=== PATIENT | male | born 1985 | race American Indian/Alaskan Native ===

== ENCOUNTER 2017-02-28 14:56 | Emergency (ER) | payer SELFPAY ==
[2017-02-28 15:37] LABS: Basophils % (Auto) 1.2 % (0.0-1.8); Hematocrit 48.3 % (35.5-45.6); Hemoglobin 16.5 gm/dl (11.8-15.2); Mean Corpuscular HGB Conc 34 % (32-34); Mean Corpuscular Hemoglobin 32 pg (28-32); Mean Corpuscular Volume 93 fl (84-94); Platelet Count 168 K/mm3 (140-440); Red Blood Count 5.18 M/mm3 (3.65-5.03); Red Cell Distribution Width 12.8 % (13.2-15.2)
[2017-02-28 16:07] LABS: Alanine Aminotransferase 22 units/L (7-56); Albumin 4.4 g/dL (3.9-5); Albumin/Globulin Ratio 1.6 %; Alkaline Phosphatase 72 units/L (35-129); Anion Gap 19 mmol/L; BUN/Creatinine Ratio 13; Blood Urea Nitrogen 10 mg/dL (9-20); Calcium 9.2 mg/dL (8.4-10.2); Carbon Dioxide 24 mmol/L (22-30); Chloride 102.4 mmol/L (98-107); Glucose 91 mg/dL (75-100); Lipase 44 units/L (13-60); Potassium 3.9 mmol/L (3.6-5.0); Sodium 141 mmol/L (137-145); Total Protein 7.2 g/dL (6.3-8.2)
[2017-02-28 16:56] LABS: Bilirubin,Urine NEG (Negative); Blood,Urine NEG (Negative); Ketones,Urine NEG (Negative); Leukocyte Esterase,Urine NEG (Negative); Mucus,Urine 3+ /HPF; Nitrite,Urine NEG (Negative)
--- NOTE | 2017-02-28 22:45 | Emergency Department Report ---
ED N/V/D HPI - General Chief complaint: Abdominal Pain Stated complaint: LIQUID STOOLX 2 WKS /ABD Time Seen by Provider: 02/28/17 22:17 Source: patient Mode of arrival: Ambulatory Limitations: No Limitations - History of Present Illness Initial comments: 31-year-old male with a past medical history of HIV with CD4 greater than 600 this year presents to the hospital with complaints of liquid stool and abdominal cramping 2 weeks. Patient states he has approximately 7-8 BM per day. Planes of hematochezia or melena. Patient has crampy intermittent abdominal pain rated 7/10 intensity worse prior to problem and after eating. Denies nausea, vomiting, fever, sick contacts, recent travel, or recent antibiotic use. Patient follows with the [facility] and is taking his HIV medication. - Related Data Previous Rx's Medication Instructions Recorded Last Taken Type Diclofenac Sodium 75 mg PO BID PRN #20 tab 11/26/13 Unknown Rx HYDROcodone/APAP 5-325 [[place] 1 each PO Q6HR PRN #15 tablet 07/11/15 Unknown Rx 5/325] Ibuprofen [Motrin] 800 mg PO Q8HR PRN #15 tablet 07/11/15 Unknown Rx Ciprofloxacin HCl [Ciprofloxacin 500 mg PO Q12HR #10 tab 03/01/17 Unknown Rx TAB] metroNIDAZOLE [Flagyl] 500 mg PO Q12HR #10 tab 03/01/17 Unknown Rx Allergies Allergy/AdvReac Type Severity Reaction Status Date / Time No Known Allergies Allergy Unverified 11/26/13 15:27 ED Review of Systems ROS: Stated complaint: LIQUID STOOLX 2 WKS /ABD Other details as noted in HPI Comment: All other systems reviewed and negative Other: Constitutional: No fevers chills Eyes: No eye pain visual changes ENT: No ear pain or throat pain Neck: Denies pain Respiratory: Denies cough wheezing shortness of breath Cardiovascular: Denies chest pain, palpitations, syncope GI: As per HPI : Denies dysuria Musculoskeletal: Denies back pain, joint swelling Skin: Denies rash, lesions, erythema Neurologic: Denies headache, numbness, weakness Psychiatric: Denies suicidal ideation, hallucinations ED Past Medical Hx - Past Medical History Hx HIV: Yes - Social History Smoking Status: Current Every Day Smoker - Medications Home Medications: Home Medications Medication Instructions Recorded Confirmed Last Taken Type Diclofenac Sodium 75 mg PO BID PRN #20 tab 11/26/13 Unknown Rx HYDROcodone/APAP 5-325 [[place] 1 each PO Q6HR PRN #15 tablet 07/11/15 Unknown Rx 5/325] Ibuprofen [Motrin] 800 mg PO Q8HR PRN #15 tablet 07/11/15 Unknown Rx Ciprofloxacin HCl [Ciprofloxacin 500 mg PO Q12HR #10 tab 03/01/17 Unknown Rx TAB] metroNIDAZOLE [Flagyl] 500 mg PO Q12HR #10 tab 03/01/17 Unknown Rx ED Physical Exam - General Limitations: No Limitations - Other Other exam information: General: No limitations, patient is alert in no acute distress Head exam: Atraumatic, normocephalic Eyes exam: Normal appearance ENT: Moist mucous membrane Neck exam: Normal inspection, full range of motion, no meningismus nontender Respiratory exam: Clear to auscultation bilateral, no wheezes, rales, crackles Cardiovascular: Normal rate and rhythm, normal heart sounds Abdomen: Soft, nondistended, and nontender, with normal bowel sounds, no rebound, or guarding Extremity: Full range of motion normal inspection no deformity Back: Normal Inspection, full range of motion, no tenderness Neurologic: Alert, oriented x3, cranial nerves intact, no motor or sensory deficit Psychiatric: normal affect, normal mood Skin: Warm, dry, intact ED Course Vital Signs 02/28/17 02/28/17 02/28/17 15:06 17:55 18:00 Temperature 98.3 F Pulse Rate 99 H 94 H 91 H Respiratory 18 17 20 Rate Blood Pressure 123/80 114/85 Blood Pressure [Left] O2 Sat by Pulse 95 96 Oximetry 02/28/17 02/28/17 02/28/17 18:31 19:20 21:00 Temperature 97.8 F 98.1 F Pulse Rate 86 97 H Respiratory 21 16 16 Rate Blood Pressure 105/75 Blood Pressure 103/72 112/72 [Left] O2 Sat by Pulse 99 98 98 Oximetry - Reevaluation(s) Reevaluation #1: 03/01/17 00:40 Patient was able to produce a stool sample. Patient left after receiving by mouth meds. I was informed after pt left. RN called patient and he is went to return to receive his prescription - Consultations Consultation #1: 02/28/17 23:30 Discussed with GI invoice classification clerk Dr. Choski rec cipro and flagyl and f/u ED Medical Decision Making - Lab Data Result diagrams: 02/28/17 15:11 02/28/17 15:11 Lab Results 02/28/17 02/28/17 02/28/17 Range/Units 15:11 15:11 15:55 WBC 5.0 (4.5-11.0) K/mm3 RBC 5.18 H (3.65-5.03) M/mm3 Hgb 16.5 H (11.8-15.2) gm/dl Hct 48.3 H (35.5-45.6) % MCV 93 (84-94) fl MCH 32 (28-32) pg MCHC 34 (32-34) % RDW 12.8 L (13.2-15.2) % Plt Count 168 (140-440) K/mm3 Lymph % (Auto) 41.4 H (13.4-35.0) % [place] % (Auto) 7.0 (0.0-7.3) % Eos % (Auto) 0.0 (0.0-4.3) % Baso % (Auto) 1.2 (0.0-1.8) % Lymph # 2.1 (1.2-5.4) K/mm3 [place] # 0.4 (0.0-0.8) K/mm3 Eos # 0.0 (0.0-0.4) K/mm3 Baso # 0.1 (0.0-0.1) K/mm3 Seg Neutrophils % 50.4 (40.0-70.0) % Seg Neutrophils # 2.5 (1.8-7.7) K/mm3 Sodium 141 (137-145) mmol/L Potassium 3.9 (3.6-5.0) mmol/L Chloride 102.4 (98-107) mmol/L Carbon Dioxide 24 (22-30) mmol/L Anion Gap 19 mmol/L BUN 10 (9-20) mg/dL Creatinine 0.8 (0.8-1.5) mg/dL Estimated GFR > 60 ml/min BUN/Creatinine Ratio 13 % Glucose 91 (75-100) mg/dL Calcium 9.2 (8.4-10.2) mg/dL Total Bilirubin 0.30 (0.1-1.2) mg/dL AST 18 (5-40) units/L ALT 22 (7-56) units/L Alkaline Phosphatase 72 (35-129) units/L Total Protein 7.2 (6.3-8.2) g/dL Albumin 4.4 (3.9-5) g/dL Albumin/Globulin Ratio 1.6 % Lipase 44 (13-60) units/L Urine Color Yellow (Yellow) Urine Turbidity Clear (Clear) Urine pH 6.0 (5.0-7.0) Ur Specific [place] 1.030 (1.003-1.030) Urine Protein 30 mg/dl (Negative) mg/dL Urine Glucose (UA) Neg (Negative) mg/dL Urine Ketones Neg (Negative) mg/dL Urine Blood Neg (Negative) Urine Nitrite Neg (Negative) Urine Bilirubin Neg (Negative) Urine Urobilinogen 4.0 (<2.0) mg/dL Ur Leukocyte Esterase Neg (Negative) Urine WBC (Auto) 1.0 (0.0-6.0) /HPF Urine RBC (Auto) 2.0 (0.0-6.0) /HPF U Epithel Cells (Auto) < 1.0 (0-13.0) /HPF Urine Mucus 3+ /HPF - Medical Decision Making Patient be treated empirically with by mouth antibiotics due to prolonged diarrhea. Stool samples pending. - Differential Diagnosis enteritis, infectious diarrhea, colitis Critical Care Time: No Critical care attestation.: If time is entered above; I have spent that time in minutes in the direct care of this critically ill patient, excluding procedure time. ED Disposition Clinical Impression: Acute diarrhea, HIV disease Disposition: DC- TO HOME OR SELFCARE Is pt being admited?: No Does the pt Need Aspirin: No Condition: Stable Instructions: Acute Diarrhea (ED), Human Immunodeficiency Virus Infection (ED) Additional Instructions: Take the antibiotics as prescribed. Follow-up with your HIV doctor and the GI doctor provided or GI doctor of choice. Please note stool studies were sent and are currently pending. Have your doctor follow up on these results as outpatient. Prescriptions: Ciprofloxacin HCl [Ciprofloxacin TAB] 500 mg PO Q12HR #10 tab metroNIDAZOLE [Flagyl] 500 mg PO Q12HR #10 tab Referrals: PRIMARY CARE, [Primary Care Provider] - 3-5 Days SEAN PAULSON MD [Staff Physician] - 3-5 Days (GI) Time of Disposition: 00:46
[2017-02-28] MEDS ORDERED: FLAGYL PO ONE (23:36)
[2017-02-28] MEDS ORDERED: LEVAQUIN PO ONE (23:36)
[2017-03-01 11:27] VITALS: BP 112/72
== END 2017-03-01 00:53 | disposition home or self-care (01) ==
LOC: ED 14:56
DX: R10.9 Unspecified abdominal pain (principal); R19.7 Diarrhea, unspecified; F17.210 Nicotine dependence, cigarettes, uncomplicated
CPT/HCPCS: 36415; 80053; 81001; 82270; 83690; 85007; 85025; 87045; 87493; 99283

== ENCOUNTER 2017-05-13 11:51 | Emergency (ER) | payer OTHER ==
[2017-05-13 12:11] VITALS: BP 120/90
[2017-05-13] MEDS ORDERED: MOTRIN PO ONE (13:48)
[2017-05-13] MEDS ORDERED: FLEXERIL PO ONE (13:48)
--- NOTE | 2017-05-13 13:52 | Emergency Department Report ---
ED Neck Pain/Injury HPI - General Chief Complaint: Pain General Stated Complaint: NECK PAIN/STIFF/RT SHOULDER MUSCLE PAIN Time Seen by Provider: 05/13/17 13:12 Mode of arrival: Ambulatory Limitations: No Limitations - History of Present Illness Initial Comments: 32-year-old male past medical history HIV on HAART, CD4 count over 500, undetectable viral load as per patient, Presents with 2-3 weeks of right-sided neck and shoulder muscle stiffness. Patient denies fever chills nausea vomiting photophobia phonophobia. Denies any trauma to head or neck. Patient is fully lucid awake alert and oriented 3. Denies any other complaints. Patient is ambulatory denies paresthesias in upper lower extremities. States that he may have overexerted his right shoulder. Denies chest pain palpitations shortness of breath. Patient visibly ranging his extremities without difficulty. States he woke up with stiff neck after sleeping with 3 pillows and his neck at an awkward angle. MD Complaint: neck pain Onset/Timin -: week(s) Place: home Radiation: right shoulder Severity: moderate Severity scale (0 -10): 7 Consistency: constant Improves With: none Worsens With: none - Related Data Previous Rx's Medication Instructions Recorded Last Taken Type Diclofenac Sodium 75 mg PO BID PRN #20 tab 11/26/13 Unknown Rx HYDROcodone/APAP 5-325 [[place] 1 each PO Q6HR PRN #15 tablet 07/11/15 Unknown Rx 5/325] Ibuprofen [Motrin] 800 mg PO Q8HR PRN #15 tablet 07/11/15 Unknown Rx Ciprofloxacin HCl [Ciprofloxacin 500 mg PO Q12HR #10 tab 03/01/17 Unknown Rx TAB] metroNIDAZOLE [Flagyl] 500 mg PO Q12HR #10 tab 03/01/17 Unknown Rx Cyclobenzaprine [Flexeril] 10 mg PO TID PRN #12 tablet 05/13/17 Unknown Rx Ibuprofen [Motrin] 800 mg PO Q8HR PRN #30 tablet 05/13/17 Unknown Rx Allergies Allergy/AdvReac Type Severity Reaction Status Date / Time No Known Allergies Allergy Unverified 11/26/13 15:27 ED Review of Systems ROS: Stated complaint: NECK PAIN/STIFF/RT SHOULDER MUSCLE PAIN Other details as noted in HPI Constitutional: denies: chills, fever Eyes: denies: eye pain, eye discharge, vision change ENT: denies: ear pain, throat pain Respiratory: denies: cough, shortness of breath, wheezing Cardiovascular: denies: chest pain, palpitations Endocrine: no symptoms reported Gastrointestinal: denies: abdominal pain, nausea, diarrhea Genitourinary: denies: urgency, dysuria Musculoskeletal: as per HPI. denies: back pain, joint swelling, arthralgia Skin: denies: rash, lesions Neurological: denies: headache, weakness, paresthesias Psychiatric: denies: anxiety, depression Hematological/Lymphatic: denies: easy bleeding, easy bruising ED Past Medical Hx - Past Medical History Hx HIV: Yes - Social History Smoking Status: Current Every Day Smoker Substance Use Type: None - Medications Home Medications: Home Medications Medication Instructions Recorded Confirmed Last Taken Type Diclofenac Sodium 75 mg PO BID PRN #20 tab 11/26/13 Unknown Rx HYDROcodone/APAP 5-325 [[place] 1 each PO Q6HR PRN #15 tablet 07/11/15 Unknown Rx 5/325] Ibuprofen [Motrin] 800 mg PO Q8HR PRN #15 tablet 07/11/15 Unknown Rx Ciprofloxacin HCl [Ciprofloxacin 500 mg PO Q12HR #10 tab 03/01/17 Unknown Rx TAB] metroNIDAZOLE [Flagyl] 500 mg PO Q12HR #10 tab 03/01/17 Unknown Rx Cyclobenzaprine [Flexeril] 10 mg PO TID PRN #12 tablet 05/13/17 Unknown Rx Ibuprofen [Motrin] 800 mg PO Q8HR PRN #30 tablet 05/13/17 Unknown Rx ED Physical Exam - General Limitations: No Limitations General appearance: alert, in no apparent distress - Head Head exam: Present: atraumatic, normocephalic - Eye Eye exam: Present: normal appearance, PERRL, EOMI - ENT ENT exam: Present: mucous membranes moist - Neck Neck exam: Present: normal inspection, full ROM (neck flexion and extension intact.) - Respiratory Respiratory exam: Present: normal lung sounds bilaterally. Absent: respiratory distress - Cardiovascular Cardiovascular Exam: Present: regular rate, normal rhythm. Absent: systolic murmur, diastolic murmur, rubs, gallop - GI/Abdominal GI/Abdominal exam: Present: soft, normal bowel sounds - Rectal Rectal exam: Present: deferred - Extremities Exam Extremities exam: Present: normal inspection - Expanded Upper Extremity Exam Right General: Present: other Shoulder Exam: Present: full ROM (shoulder internal and external rotation abduction and abduction intact), tenderness (palpable discomfort overlying right trapezius muscle) Upper Arm exam: Present: normal inspection, full ROM Elbow exam: Present: normal inspection, full ROM - Back Exam Back exam: Present: normal inspection, muscle spasm (right trapezius muscle spasm) - Expanded Back Exam Expanded 1 - Mild reproducible tenderness on palpation with palpable spasm. - Neurological Exam Neurological exam: Present: alert, oriented X3 - Psychiatric Psychiatric exam: Present: normal affect, normal mood - Skin Skin exam: Present: warm, dry, intact, normal color. Absent: rash ED Course Vital Signs 05/13/17 05/13/17 12:08 13:56 Temperature 98.3 F Pulse Rate 93 H Respiratory 20 16 Rate Blood Pressure 120/90 O2 Sat by Pulse 97 Oximetry ED Medical Decision Making - Medical Decision Making A/P: Right trapezius muscle strain/spasm 1-Flexeril when necessary, Motrin when necessary 2-patient has no clinical neurological deficits on exam strength 5 out of 5 bilateral upper extremities deep tendon reflexes intact distal pulses intact. Range of motion shoulder elbow wrist forearm and preserved 3-follow-up with primary care Critical care attestation.: If time is entered above; I have spent that time in minutes in the direct care of this critically ill patient, excluding procedure time. ED Disposition Clinical Impression: Trapezius muscle spasm Strain of right trapezius muscle Qualifiers: Encounter type: initial encounter Qualified Code(s): S46.811A - Strain of other muscles, fascia and tendons at shoulder and upper arm level, right arm, initial encounter Disposition: TO HOME OR SELFCARE Is pt being admited?: No Does the pt Need Aspirin: No Condition: Stable Instructions: Muscle Strain (ED), Muscle Spasm (ED) Prescriptions: Cyclobenzaprine [Flexeril] 10 mg PO TID PRN #12 tablet PRN Reason: Muscle Spasm Ibuprofen [Motrin] 800 mg PO Q8HR PRN #30 tablet PRN Reason: Pain Referrals: [facility] [Outside] - 3-5 Days [facility] [place] [Outside] - 3-5 Days Forms: Work/School Release Form(ED) Time of Disposition: 13:50
== END 2017-05-13 13:59 | disposition home or self-care (01) ==
LOC: ED 11:51
DX: S46.811A Strain of other muscles, fascia and tendons at shoulder and upper arm level, right arm, initial encounter (principal); M62.838 Other muscle spasm; F17.200 Nicotine dependence, unspecified, uncomplicated; X58.XXXA Exposure to other specified factors, initial encounter; Y93.89 Activity, other specified; Y92.098 Other place in other non-institutional residence as the place of occurrence of the external cause; Y99.8 Other external cause status
CPT/HCPCS: 99282